=== PATIENT | male | born 1970 | race Caucasian/White ===

== ENCOUNTER → 2022-07-22 11:38 | Outpatient (CLI) | payer OTHER, SELFPAY ==
--- NOTE | 2022-07-22 11:51 | XR_ITS ---
FINAL REPORT CLINICAL HISTORY: BACK PAIN FINDINGS: LUMBAR SPINE Five views demonstrate no acute fracture. There are moderate degenerative changes. Mild vascular calcification is identified. There is no malalignment. IMPRESSION: Moderate degenerative change without acute process. Reviewed, Interpreted and Dictated by Micah Guerra III, MD Transcribed by Candice Argueta Authenticated and [facility]
== END ==
PROVIDERS: PCP Nurse Practitioner Family; Visit Provider Nurse Practitioner Family
DX: M54.50 Low back pain, unspecified (principal)
CPT/HCPCS: 72110

== ENCOUNTER → 2022-09-14 06:14 | Outpatient (CLI) | payer OTHER, SELFPAY ==
--- NOTE | 2022-09-14 | CA_ITS ---
APPROVED REPORT Exam: Exercise Treadmill Technologist: Pooja Logan, Ht: 5 ft 10 in Wt: 245 lbs BSA: 2.28 m2 HR: 79 bpm BP: 144/85 mmHg Medical History Medications: Metformin,,,,, Januvia,,,,, CyclobenAPRINE,,,,, TUmeric,,,,, Femofibrate,,,,, Stress Test Details Test: Jeremiah HR Resting HR: 82 bpm Max Heart Rate (APMHR): 168.844674 bpm Max HR Achieved: 147 bpm Target HR (85% APMHR): 142.267711 bpm % of APMHR: 87.50 Recovery HR: 97 bpm BP Resting BP: 138/88 mmHg Max BP: 187/92 mmHg Recovery BP: 151.0/88.0 mmHg ECG Clinical Exercise duration: 05:50 min Highest Stage Achieved: Exercise capacity: 7.0 METs Stress ECG Conclusion Injected @ 0345 Symptoms: Denies Arrhythmias/Ectopy: None ST-T Changes: <1.5mm ST Changes Test Summary REST . . . . . . . Standing REST 03:41 0.0 0.0 82 . 138/ 88 . . Stage 1 01:00 10.0 1.7 124 . . . . Stage 1 02:00 10.0 1.7 144 . . . . Stage 1 03:00 10.0 1.7 140 . 160/ 86 . . Stage 2 01:00 12.0 2.5 142 . . . . Stage 2 02:00 12.0 2.5 145 . . . . Stage 2 02:50 12.0 2.5 147 . 158/ 82 . Stop exercise at 05:50 RECOVERY 01:00 0.0 0.0 129 . . . . RECOVERY 02:00 0.0 0.0 106 . 187/ 92 . . RECOVERY 03:00 0.0 0.0 97 . 187/ 92 . . RECOVERY 03:25 0.0 0.0 98 . 151/ 88 . . Electronically signed by : Arturo Hewitt MD 09/14/2022 12:59:40
--- NOTE | 2022-09-14 06:15 | NM_ITS ---
APPROVED REPORT Exam: Nuclear Stress Test Indication: Chest pain, Abnormal EKG, Fatigue, HTN, DM, High cholesterol, Family history Patient Location: Outpatient Stress Tech: Pooja Chou [place] Tech:Nancy Lerma, ARRT, RT (R)(N) Ht: 5 ft 11 in Wt: 254 lbs HR: 82 bpm BP: 138/88 mmHg BSA: 2.33 m2 TID: 1.11 BMI: 35.4 History: Chest pain, Abnormal EKG, Fatigue, HTN, DM, High cholesterol, Family history Procedure: Patient exercised on Jeremiah protocol 5:50 minutes and sec, resting heart rate 82 bpm, resting blood pressure 138/88 mmHg, with exercise maximum heart rate achived was 147 bpm which is 88 % of the maximum predicted heart rate and blood pressure was 187/92 mmHg. Test was stopped due to SOB. Patient denied any complaint of chest pain. Patient has Adequate exercise capacity, achieved 7.0 METs of workload on treadmill, the blood pressure response to exercise was Adequate. Electrocardiogram Resting electrocardiogram shows sinus rhythm, with exercise there is less than 1.[address] segment depression noted from the baseline EKG. The EKG portion of the exercise Myoview is negative for ischemia. Cardiac Stress and Resting SPECT Images: Cardiac Stress and Resting SPECT images were obtained using technetium 99m Myoview 30.2 mCi stress and 10.90 mCi at rest. Gated SPECT for analysis of segmental wall motion and calculation of the ejection fraction also done. Cardiac stress and rest SPECT images show uniform myocardial activity without segmental perfusion abnormality, computer derived ejection fraction is 54% with no regional wall motion abnormality, right ventricle is normal size and contractility. Conclusion: 1. The EKG portion of the exercise Myoview is negative for ischemia. Patient has adequate exercise capacity achieved 7 METS of workload on treadmill, the blood pressure response to exercise was adequate, there was no exercise-induced chest discomfort. 2. No scintigraphic evidence of reversible ischemia seen, compared to ejection fraction 54% with no regional wall motion abnormality, right ventricle is normal size and contractility. 3. Normal exercise Myoview study. Electronically signed by : Arturo Hewitt MD 09/14/2022 13:02:36
--- NOTE | 2022-09-14 06:15 | CA_ITS ---
APPROVED REPORT EXAM: Comprehensive 2D, Doppler, and color-flow Echocardiogram Hr Generalist: Devika Egan RT(R) Ht: 5 ft 10 in Wt: 245lbs BSA: 2.28 BP: 147/89 mmHg Indications: HTN, DM, sinus tachycardia, Abn EKG 2D Dimensions LVOT 2.00 cm (M/F) 1.5-2.5 LVEF (Trotter's) 42.60 % M: 52 - 72 LV Volume 137.30 mL M: 62 - 150 LV Volume Index 60.22 mL/m2 M: 34 - 74 LA Volume 49.50 mL LA Volume Index 21.71 mL/m2 (M/F) 16-34 M-Mode Dimensions RVDd 2.93 cm (0.9-2.6) LA Diam 3.91 cm (1.9-4.0) LVDd 4.19 cm (3.5-5.7) Ao Diam 3.23 cm (2.0-3.7) LVDs 3.15 cm (3.5-5.7) IVSd 0.93 cm (0.6-1.1) PWd 0.79 cm (0.6-1.1) EF (Teich) 49.60% FS 24.80% EDV (Teich) 78.10 mL ESV (Teich) 39.40 mL LV Diastology E Decel Time 150.00 (160-240 msec) E/A Ratio 0.9 MED E' 6.50 (< 7 cm/sec) E'/MED E' Ratio 9.09 (>14) LAT E' 7.70 (<10 cm/sec) E/LAT E' Ratio 7.68 (>14) Mitral Valve MV E Max Dom. 59.00 (40-130 cm/s) MV A Velocity 65.00 (40-130 cm/s) E/A Ratio 0.91 MV Decel. Time 150.00 (160-240 ms) MV PHT 44.00 ms Left Ventricle Left atrium is mildly enlarged, left ventricle is normal size mild concentric left ventricular hypertrophy, estimated ejection fraction 55% with no regional wall motion abnormality, grade 1 diastolic dysfunction seen without tissue Doppler evidence of raise left atrial pressure. Right Ventricle Right atrium and right ventricle are normal size and contractility. Aortic Valve Aortic valve is minimally thickened and calcified without aortic stenosis or aortic insufficiency. Mitral Valve Mitral valve is grossly normal, there is trace mitral regurgitation. Tricuspid Valve Tricuspid grossly normal, there is trace tricuspid regurgitation, tricuspid regurgitation jet velocity is inadequate for calculation of the right ventricular systolic pressure. Pulmonic Valve Pulmonic valve is poorly visualized. Great Vessels Aortic root is normal size. Inferior vena cava is normal size with normal inspiratory collapse. Pericardium No significant pericardial effusion noted. Conclusion 1. Mildly enlarged atrium, normal left ventricular size, mild concentric left ventricular hypertrophy, estimated ejection fraction 55% with no regional wall motion abnormality, grade 1 diastolic dysfunction seen without tissue Doppler evidence of raise left atrial pressure. 2. Trace mitral and tricuspid regurgitation. 3. No significant pericardial effusion. 4. Inferior vena cava is normal size with normal inspiratory collapse. Electronically signed by : Arturo Hewitt MD 09/14/2022 21:07:14
--- NOTE | 2022-09-14 08:22 | HMH.ITSHM ---
Current Home Medications as stated by this patient Tony Whitney or it sales representative. []SITAGLIPTIN METFORMIN FENOFIBRATE CYCLOBENZAPRINE
== END ==
LOC: RAD 06:15
PROVIDERS: PCP Nurse Practitioner Family; Visit Provider Nurse Practitioner
DX: R94.31 Abnormal electrocardiogram [ECG] [EKG] (principal); I99.8 Other disorder of circulatory system
CPT/HCPCS: 78452; 93017; 93306; A9502

== ENCOUNTER 2022-11-08 11:02 | Emergency (ER) | payer OTHER, SELFPAY ==
[2022-11-08 11:10] VITALS: BP 150/91; PULSE 98; RESP 18; TEMP 36.8; O2SAT 98; BMI 36.3
--- NOTE | 2022-11-08 11:30 | EXP.UTC ---
Discharge Plan Disposition Patient Disposition: Home, Self-Care Condition: Good Prescriptions Prescriptions: New benzonatate 100 mg capsule 100 mg PO TID PRN (Reason: cough) Qty: 30 0RF azithromycin [Zithromax Z-Long] 250 mg tablet See Rx Instructions .ROUTE .COMPLEX 5 Days Qty: 6 0RF Rx Instructions: For 250 mg dose pack: take 500 mg today (day 1), then 250 mg for 4 days (days 2-5) fluticasone propionate [Flonase Allergy Relief] 50 mcg/actuation spray,suspension 1 spray intranasal DAILY Qty: 16 0RF Rx Instructions: administer into each nostril daily No Action fenofibrate nanocrystallized 145 mg tablet 145 mg PO DAILY Januvia 100 mg tablet 100 mg PO DAILY metformin 1,000 mg tablet 1,000 mg PO BIDWMEAL metoprolol succinate 25 mg tablet extended release 24 hr 25 mg PO QDAY Referrals Follow up/Referrals: Niki Caldwell APRN [Primary Care Provider] - See instructions Activity Restrictions/Add. Instructions Additional Instructions/Restrictions: Start antibiotic today. Be sure to complete entire prescription even if feeling better Monitor temp. Tylenol every 4 hours as needed and / or ibuprofen every 6 hours as needed ( As long as your primary care physician has told you that it ok to take both. For fever/aches/pains ER if no less than 101 despite Tylenol or Motrin Humidifier/vaporizer or hot steamy shower *Tessalon Perles will not cause drowsiness but use at bedtime to help stop cough so that you may get some rest. Follow up with your Family Doctor if no improvement or any worsening of symptoms Follow up IMMEDIATELY for new or worsening of symptoms OR no noticeable improvement over the next 48-72 hours. 911 immediately for any life threatening symptoms such as chest pain or difficulty breathing Clinical Impressions Clinical Impression: Bronchitis Instructions Patient Instructions: Sore Throat, Cough Discharge ED Provider: Chelsy Perez [facility] General Stated complaint: Persistant cough drainage Mode of Arrival: Ambulatory Source of Information: Patient Limitations: No Limitations Time Seen by Provider: 11/08/22 11:30 Description of Symptoms (Recalled from Triage Doc. by RN): dry cough, and lungs hurt HEENT Symptoms (Recalled from RN notes): Yes Resp Symptoms (Recalled from RN notes): No Skin Symptoms (Recalled from RN notes): No MS Symptoms (Recalled from RN notes): No Functional Status (Recalled from RN notes): n/a History of Present Illness Provider Complaint: Patient states that he feels like he may have Bronchitis States that he has has been having dry cough, sore scratchy throat and sinus congestion on and off States that he isnt coughing anything up but today he was still coughing and feeling like his throat was scratchy State that he feels like he did when he had bronchitis Related Data Home Medications Medication Instructions Recorded Confirmed fenofibrate nanocrystallized 145 145 mg PO DAILY . 08/05/22 11/08/22 mg tablet metformin 1,000 mg tablet 1,000 mg PO BIDWMEAL . 08/05/22 11/08/22 sitagliptin phosphate 100 mg 100 mg PO DAILY . 08/05/22 11/08/22 tablet (Januvia) metoprolol succinate 25 mg 25 mg PO QDAY . 11/08/22 11/08/22 tablet,extended release 24 hr Previous Rx's Medication Instructions Recorded azithromycin 250 mg tablet See Rx Instructions PO .COMPLEX 5 11/08/22 (Zithromax Z-Long) days #6 tabs benzonatate 100 mg capsule 100 mg PO TID PRN cough #30 caps 11/08/22 fluticasone propionate 50 1 spray intranasal DAILY #16 grams 11/08/22 mcg/actuation nasal spray,suspension (Flonase Allergy Relief) Allergies Allergy/AdvReac Type Severity Reaction Status Date / Time No Known Allergies Allergy Verified 11/08/22 11:30 Worker's Comp Is this a Worker's Comp case?: No [facility] Disclaimer: The information contained in this section may have been updated after the patient
[2022-11-08 11:46] VITALS: BP 150/91; PULSE 98; RESP 20; TEMP 36.8; O2SAT 97
== END 2022-11-08 11:46 | disposition home or self-care (01) ==
PROVIDERS: Emergency Provider Nurse Practitioner; PCP Nurse Practitioner Family
DX: J40 Bronchitis, not specified as acute or chronic (principal)
CPT/HCPCS: 99212; 99213; G0463